=== PATIENT | male | born 2000 | race African-American/Black ===

== ENCOUNTER 2019-06-01 04:34 | Inpatient (IN) | payer OTHER ==
[~2019-06-01] VITALS: Ht 175.3 cm; Wt 81.8 kg
[2019-06-01] MEDS ORDERED: CHARCOAL ACTIVATED LIQUID 25 GM/120 ML BTL PO ONE (04:45)
[2019-06-01 05:14] LABS: BASO # 0.1 10^3/uL (0.0-0.2); BASO % 0.6 % (0.0-1.0); EOS # 0.1 10^3/uL (0.0-0.5); EOS % 1.1 % (0.0-3.0); HEMATOCRIT 45.9 % (42.0-52.0); HEMOGLOBIN 14.9 g/dl (13.5-17.5); LYMPH # 3.9 10^3/uL (1.5-5.0); LYMPH % 41.4 % (24.0-44.0); MEAN CORPUSCULAR HEMOGLOBIN 29.1 pg (27.0-33.0); MEAN CORPUSCULAR HGB CONC 32.5 g/dl (32.0-36.5); MEAN CORPUSCULAR VOLUME 89.6 fl (80.0-96.0); MONO # 0.9 10^3/uL (0.0-0.8); MONO % 9.2 % (0.0-5.0); NEUTROPHILS # 4.4 10^3/uL (1.5-8.5); NEUTROPHILS % 46.8 % (36.0-66.0); PLATELET COUNT, AUTOMATED 357 10^3/uL (150-450); RED BLOOD COUNT 5.12 10^6/uL (4.30-6.10); WHITE BLOOD COUNT 9.4 10^3/uL (4.0-10.0)
[2019-06-01] MEDS ORDERED: FLUO20CA19 PO (05:19)
[2019-06-01 05:44] LABS: ACETAMINOPHEN LEVEL < 2.0 UG/ML (10.0-30.0); ALBUMIN 4.1 GM/DL (3.2-5.2); ALT/SGPT 27 U/L (12-78); BILIRUBIN,DIRECT < 0.1 MG/DL (0.0-0.2); BILIRUBIN,TOTAL 0.2 MG/DL (0.2-1.0); BLOOD UREA NITROGEN 11 MG/DL (7-18); CALCIUM LEVEL 8.9 MG/DL (8.5-10.1); CARBON DIOXIDE LEVEL 24 MEQ/L (21-32); CHLORIDE LEVEL 105 MEQ/L (98-107); CPK CREATINE PHOSPHOKINASE 316 U/L (39-308); CREATININE FOR GFR 0.92 MG/DL (0.70-1.30); ETHYL ALCOHOL (ETHANOL) < 0.003 % (0.000-0.010); GLUCOSE, FASTING 86 MG/DL (70-100); POTASSIUM SERUM 3.8 MEQ/L (3.5-5.1); SALICYLATE LEVEL < 1.7 MG/DL (5.0-30.0); SODIUM LEVEL 140 MEQ/L (136-145); TOTAL PROTEIN 8.4 GM/DL (6.4-8.2)
[2019-06-01 06:09] LABS: AMPHETAMINES LEVEL URINE NEGATIVE (NEGATIVE); BARBITURATES URINE NEGATIVE (NEGATIVE); BENZODIAZEPINES URINE NEGATIVE (NEGATIVE); CANNABINOIDS URINE NEGATIVE (NEGATIVE); COCAINE METABOLITE URINE NEGATIVE (NEGATIVE); METHADONE URINE NEGATIVE (NEGATIVE); OPIATES URINE NEGATIVE (NEGATIVE); PHENCYCLIDINE URINE NEGATIVE (NEGATIVE)
--- NOTE | 2019-06-01 06:41 | ECGEPIP ---
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
[2019-06-01] MEDS ORDERED: NS 1,000 ML IV ONE (08:15)
[2019-06-01 08:59] LABS: TROPONIN I < 0.02 NG/ML (< 0.10)
[2019-06-01 11:08] LABS: CPK CREATINE PHOSPHOKINASE 235 U/L (39-308); MB/CK RELATIVE INDEX 0.85 (< OR =4); TROPONIN I < 0.02 NG/ML (< 0.10)
[2019-06-01] MEDS ORDERED: MOM 30ML SUSPENSION UDC PO PRN (13:45)
[2019-06-01] MEDS ORDERED: IBUPROFEN 400 MG TAB PO PRN (13:45)
[2019-06-01] MEDS ORDERED: OLANZapine ORAL DISINTEGRATING TAB 5MG PO PRN (13:45)
[2019-06-01] MEDS ORDERED: traZODone 50 MG TAB PO PRN (13:45)
[2019-06-01] MEDS ORDERED: MAALOX 30 ML SUSP *UDC PO PRN (13:45)
[2019-06-01 18:44] VITALS: BP 134/70
--- NOTE | 2019-06-01 19:19 | ECGEPIP ---
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
[2019-06-02 06:28] VITALS: BP 110/67
--- NOTE | 2019-06-02 08:17 | HPEPDOC ---
[facility] Medical History & Physical Date of Admission Jun 02, 2019 Date of Service: Jun 02, 2019 History and Physical CHIEF COMPLAINT: Admitted to inpatient mental health unit for suicide attempt HISTORY OF PRESENT ILLNESS: 18-year-old male with past medical history of anxiety and depression, admitted to inpatient mental health unit for suicidal ideation. Patient recently moved from [place], which caused him stress and he overdosed on his antidepressant fluoxetine. He reportedly took 16 tabs, presented to the ED within 20 minutes of ingestion. He has remained asymptomatic since ingestion, without any complaints at this time. He is not even sure why he took the extra medication, has attempted suicide in the past by trying to cut himself. He has no complaints at this time, denies any shortness of breath, chest pain, nausea, vomiting, abdominal pain or diarrhea. 10 point review of system is negative except for above PAST MEDICAL HISTORY: 1. Anxiety and depression. PAST SURGICAL HISTORY: 1. Left ankle surgery. SOCIAL HISTORY: Never smoker. Social alcohol. Denies drugs FAMILY HISTORY: No family history of cancer, heart disease ALLERGIES: Please see below. HOME MEDICATIONS: Please see below. PHYSICAL EXAMINATION: VITAL SIGNS: Please see below. GENERAL: No distress HEENT: Normocephalic, atraumatic, moist mucous membranes NECK: Supple CARDIOVASCULAR EXAMINATION: S1, S2, no murmurs RESPIRATORY EXAMINATION: Clear to auscultation, no wheezing ABDOMINAL EXAMINATION: Soft, nontender, nondistended, positive bowel sounds EXTREMITIES: Range of motion intact SKIN: No rash NEUROLOGICAL EXAMINATION: Alert and oriented 3, no focal deficits PSYCHIATRIC EXAMINATION: Calm and cooperative LABORATORY DATA: See below. MICROBIOLOGY: Please see below. ASSESSMENT: 18-year-old male with past medical history of anxiety and depres hayde, admitted to inpatient mental health unit after suicide attempt. PLAN: 1. Suicide attempt. Overdosed on fluoxetine, currently is symptomatic, no signs of serotonin syndrome at this time. Patient has no other medical issues at this time, please reconsult as needed. Vital Signs Vital Signs Date Time Temp Pulse Resp B/P (MAP) Pulse Ox O2 Delivery O2 Flow Rate FiO2 06/02/19 06:28 98.9 60 14 110/67 (81) 06/01/19 18:44 98 Room Air Laboratory Data Labs 24H Laboratory Tests 2 06/01/19 10:21: Total Creatine Kinase 235, Creatine Kinase MB 2.0, Creatine Kinase MB Relative Index 0.85, Troponin I < 0.02 Home Medications Scheduled Fluoxetine Hcl (Fluoxetine HCl) 20 Mg Capsule, 20 MG PO DAILY Allergies Coded Allergies: No Known Allergies (Unverified , 06/01/19) A-FIB/CHADSVASC A-FIB History Current/History of A-Fib/PAF?: No JOSE R LALA MD Jun 02, 2019 08:17
[2019-06-02] MEDS ORDERED: INFLUENZA QUADRIVALENT PF VACCINE 0.5ML SYRINGE (90686) IM ONE (09:00)
--- NOTE | 2019-06-02 10:52 | MHHPEPDOC ---
[facility] History & Physical History and Physical DATE OF ADMISSION: Jun 01, 2019 at 13:38 New Patient Ben Zimmer MRN: N/A Date of : N/A Date of Service: 06/02/2019 Chief Complaint "I just dumped them." History of Present Illness The patient is a 18-year-old man with a history of mild depression presents after reportedly getting into an argument with his girlfriend whom he lives with and with his parents. He had noted that after the argument he was really upset and then got into his bathroom irritated. His mother had come in where he had dumped his medication namely Prozac into the toilet and flushed them, however, she was concerned as he was upset and dismissive and marked out whether he had taken an overdose. He was brought in out of an abundance of caution. Initially given charcoal as there was a question as to whether he had actually taken overdose, however, he had no signs or symptoms of an overdose and was still admitted out of an abundance of caution. His mother upon his presentation to the inpatient mental health unit had discussed with us that she had not seen him take the overdose and due to the nature of the flushing feels that he might have just flushed them consistent with the story. She had no safety concerns after he was brought in and did not have any medical problems. When I met with the patient he reported that he had history of some mild depression but had relatively been in good straits at this time, however, he reported that he had had an argument with his girlfriend and they had recently moved to this area 2 or 3 weeks ago as his parents are in the . He reports that he had become irritable and had gone his bathroom when his mom had gone in. She found the empty bottles, but he reportedly flushed them. She apparently was not amenable to his explanation and he was brought in out of an abundance of concern and admitted. He had been doing while in the unit. Denying any suicidal or homicidal ideation since his presentation with us. Review Of Systems Depression: As above. Anxiety: The patient denies any excessive worry associated with physical symptoms. They deny any experience of discreet panic in the past. Marissa: The patient denies any episodes of euphoria/dysphoria associated with decreased need for sleep, hedonism, talkatively or impulsivity lasting longer than 5 days. Psychotic: The patient denies any experiences of auditory or visual hallucinations. They deny any episodes of paranoia or delusional thinking in the past Trauma: The patient denies any traumatic events associated with nightmares or intrusive thoughts. Borderline: The patient screens negative for borderline personality at this junction. Past Psychiatric History Has a history of 2 prior admissions with a reported suicidal gesture, but no overt suicide attempts, currently on Prozac for depression. Currently establishing with a new psychiatrist. Allergies Please see below. Family Psychiatric History The patient denies/is unaware any history of mental health history including ad dictions and suicide. Social History The patient is a never man with no children. He had been with this girlfriend for 2 years. She had moved up here from [place] with him and his family. 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 He has completed high school, had a history of an IEP and behavioral classes from 6-8. Reported difficulties with socialization. Has a history of juvenile arrest for curfew and was placed on probation. His parents are , has a close relationship with his older brother, mother and father. His father is active duty and had recently just arrived to [place] where he moved with the family. Substance Abuse History The patient denies any excessive alcohol use, tobacco or illicit drug use, denies history of substance use treatment. Medical History Patient has no significant past medical history. Mental Status Examination General: Well dressed with good hygiene Speech: Spontaneous and fluid Thought processes: Linear and logical MSK: Smooth and coordinated gait, no signs of tremors or involuntary orofacial movements Thought content: Future orientated Abstract reasoning, and computation: Intact Description of associations: Intact Description of abnormal or psychotic thoughts: Denies any suicidal or homicidal ideation. Denies any auditory or visual hallucinations. Does not appear to be responding to internal stimuli. Does not appear to be endorsing any bizarre or paranoid ideation. Judgment: fair Insight: fair Orientation: Alert and orientated 3 Cognition: Grossly normal Recent and remote memory: Intact Attention span and concentration: Intact Fund of knowledge: Adequate Mood: "okay" Affect: Euthymic with a full range Diagnoses Adjustment disorder with disruption of mood and conduct. Unspecified socialization ability/concern for autism? Assessment and Plan The patient presents for evaluation after concern for overdose, however, after 48 hours of observation the patient does not meet involuntary criteria as he is denying suicidal or homicidal ideation. He had a lack of medical problems and for the reported amount of Prozac that he had taken, he would likely have some signs or symptoms consistent with the overdose. His observation for 6 hours in the ER further suggested that he had likely not taken it. Collateral formation from his mother and father reveals that no one had observed the reported overdose and has simply a bottle of pills had been located. His parents were amenable to safety planning and were very insistent upon the patient being discharged as he does poorly in inpatient settings. The patient in my judgment did not meet involuntary criteria for extension of his admission at 48 hours as he had not been demonstrating suicidal or homicidal ideation, had normal mental status, was cooperative, pleasant and was able to demonstrate insight of the situation. The patient declined further voluntary admission and was discharged in good roger.. Disposition Same day discharged. Problem List 1. Risk for suicide. 2. Depression. 3. Ineffective coping. Initial Treatment Plan 1. Patient was admitted on a 9.39 legal status. 2. Complete history was obtained. 3. With patients permission, family will be contacted and database will be expanded. 4. Patients medication regimen will be reviewed and changed accordingly. 5. Patient will be provided with protected environment. 6. Patient will be treated with individual, group, and milieu therapies. 7. Patient will receive supportive psych-education. 8. Discharge planning will commence immediately. 9. Outpatient follow-up treatment will be strongly recommended. 10. The initial treatment plan will focus initially on: Estimated Length Of Stay 2 days. Time Spent 70 minutes. Saturday Vital Signs Vital Signs Date Time Temp Pulse Resp B/P (MAP) Pulse Ox O2 Delivery O2 Flow Rate FiO2 06/02/19 06:28 98.9 60 14 110/67 (81) 06/01/19 18:44 98 Room Air Medications Scheduled Fluoxetine Hcl (Fluoxetine HCl) 20 Mg Capsule, 20 MG PO DAILY for mood Allergies Coded Allergies: No Known Allergies (Unverified , 06/01/19) BRITTANY PARISI DO Jun 02, 2019 10:52
--- NOTE | 2019-06-02 11:40 | MHDSPDOC ---
[facility] Discharge Summary Discharge Summary DATE OF ADMISSION: Jun 01, 2019 at 13:38 DATE OF DISCHARGE: 06/02/19 Please see h/p for dc dx, clinical course and reasoning for same day d/c Vital Signs/I&Os Vital Signs Date Time Temp Pulse Resp B/P (MAP) Pulse Ox O2 Delivery O2 Flow Rate FiO2 06/02/19 06:28 98.9 60 14 110/67 (81) 06/01/19 18:44 98 Room Air Medications Scheduled Fluoxetine Hcl (Fluoxetine HCl) 20 Mg Capsule, 20 MG PO DAILY for mood for 7 Days, #7 Allergies Coded Allergies: No Known Allergies (Unverified , 06/01/19) BRITTANY PARISI DO Jun 02, 2019 11:40
[2019-06-02] MEDS ORDERED: FLUO20CA19 PO (11:42)
== END 2019-06-02 13:10 | disposition home or self-care (01) | DRG 882 ==
LOC: M ED 04:34 → M ED INP 13:38 → M PSY 17:20
PROVIDERS: ADMIT Psychiatry & Neurology Addiction Medicine; ATTEND Psychiatry & Neurology Addiction Medicine
DX: F43.25 Adjustment disorder with mixed disturbance of emotions and conduct (principal)

== ENCOUNTER 2021-12-05 13:45 | Emergency (ER) | payer OTHER, SELFPAY ==
[~2021-12-05] VITALS: Ht 175.3 cm; Wt 86.4 kg
[~2021-12-05 13:45] MED LIST: FLUO20CA22 PO
[2021-12-05 15:41] LABS: HEMATOCRIT 43.3 % (42.0-52.0); HEMOGLOBIN 14.3 g/dl (13.5-17.5); MEAN CORPUSCULAR HEMOGLOBIN 29.2 pg (27.0-33.0); MEAN CORPUSCULAR VOLUME 88.4 fl (80.0-96.0); PLATELET COUNT, AUTOMATED 344 10^3/uL (150-450); WHITE BLOOD COUNT 12.6 10^3/uL (4.0-10.0)
[2021-12-05 16:15] LABS: ACETAMINOPHEN LEVEL 3.3 UG/ML (10.0-30.0); ALBUMIN 4.2 GM/DL (3.2-5.2); ALT/SGPT 25 U/L (12-78); BILIRUBIN,DIRECT 0.2 MG/DL (0.0-0.2); BILIRUBIN,TOTAL 0.7 MG/DL (0.2-1.0); BLOOD UREA NITROGEN 11 MG/DL (7-18); CALCIUM LEVEL 9.5 MG/DL (8.5-10.1); CARBON DIOXIDE LEVEL 28 MEQ/L (21-32); CHLORIDE LEVEL 106 MEQ/L (98-107); ETHYL ALCOHOL (ETHANOL) < 0.003 % (0.000-0.010); GLOMERULAR FILTRATION RATE > 60.0 (>60); GLUCOSE, FASTING 96 MG/DL (70-100); POTASSIUM SERUM 4.1 MEQ/L (3.5-5.1); SALICYLATE LEVEL < 1.7 MG/DL (5.0-30.0); SODIUM LEVEL 140 MEQ/L (136-145); THYROID STIMULATING HORMONE 0.453 uIU/ML (0.358-3.740)
[2021-12-05 16:31] LABS: AMPHETAMINES LEVEL URINE NEGATIVE (NEGATIVE); BARBITURATES URINE NEGATIVE (NEGATIVE); BENZODIAZEPINES URINE NEGATIVE (NEGATIVE); CANNABINOIDS URINE NEGATIVE (NEGATIVE); COCAINE METABOLITE URINE NEGATIVE (NEGATIVE); METHADONE URINE NEGATIVE (NEGATIVE); OPIATES URINE NEGATIVE (NEGATIVE); PHENCYCLIDINE URINE NEGATIVE (NEGATIVE)
[2021-12-05 16:34] LABS: RSV AMPLIFICATION NEGATIVE (NEGATIVE)
[2021-12-05] MEDS ORDERED: HOME MED LIST COMPLETE! XX SCH (20:30)
[2021-12-05 22:43] VITALS: BP 128/78
== END 2021-12-05 22:44 | disposition home or self-care (01) ==
LOC: M ED 13:45
DX: F43.0 Acute stress reaction (principal); R45.851 Suicidal ideations; F32.A Depression, unspecified; F17.200 Nicotine dependence, unspecified, uncomplicated; F10.10 Alcohol abuse, uncomplicated

== ENCOUNTER → 2022-10-11 | Outpatient (REF) | payer SELFPAY ==
[2022-10-11 21:24] LABS: APPEARANCE, URINE CLEAR (CLEAR); BACTERIA, URINE AUTO NEGATIVE (NEGATIVE); BILIRUBIN, URINE AUTO NEGATIVE (NEGATIVE); BLOOD, URINE BLOOD NEGATIVE (NEGATIVE); COLOR, URINE STRAW (YELLOW); GLUCOSE, URINE (UA) AUTO NEGATIVE (NEGATIVE); KETONE, URINE AUTO NEGATIVE (NEGATIVE); LEUKOCYTE ESTERASE, URINE AUTO NEGATIVE (NEGATIVE); NITRITE, URINE AUTO NEGATIVE (NEGATIVE); PROTEIN, URINE AUTO NEGATIVE (NEGATIVE); RBC, URINE AUTO 1 /HPF (0-3); SPECIFIC GRAVITY URINE AUTO 1.009 (1.002-1.035); SQUAMOUS EPITHELIAL CELL UR AU 0 /HPF (0-6); UROBILINOGEN, URINE AUTO 0.2 mg/dL (0.0-2.0); WBC, URINE AUTO 0 /HPF (0-3)
[2022-10-11 22:50] LABS: GC DNA AMPLIFICATION NEGATIVE (NEGATIVE)
== END ==
LOC: M LAB REF 21:05
PROVIDERS: ATTEND Physician Assistant
DX: Z11.3 Encounter for screening for infections with a predominantly sexual mode of transmission (principal)